=== PATIENT | male | born 1940 | race Native Hawaiian/Other Pacific Islander ===

== ENCOUNTER 2017-05-02 19:15 | Emergency (ER) | payer OTHER ==
[~2017-05-02 19:15] MED LIST: FLUD0.1T PO; KLOR-CON M2020 MEQ PO; LANS30CA PO
== END 2017-05-02 19:47 | disposition home or self-care (01) ==
LOC: ED 19:15
DX: M79.605 Pain in left leg (principal); R20.0 Anesthesia of skin
CPT/HCPCS: 99281

== ENCOUNTER 2019-04-20 14:16 | Outpatient (CLI) | payer OTHER | END 2019-04-20 14:29 | disposition short-term general hospital (02) | LOC: AMB 14:16 | DX: M79.604 Pain in right leg (principal); W18.39XA Other fall on same level, initial encounter; Y92.89 Other specified places as the place of occurrence of the external cause | CPT/HCPCS: A0425; A0427 ==

== ENCOUNTER 2019-04-20 14:39 | Emergency (ER) | payer OTHER ==
[~2019-04-20] VITALS: Ht 180.3 cm; Wt 90.7 kg
[2019-04-20 19:00] VITALS: BP 151/82; TEMP 98.1
== END 2019-04-20 19:00 | disposition short-term general hospital (02) ==
LOC: ED 14:39
DX: S72.391A Other fracture of shaft of right femur, initial encounter for closed fracture (principal); W18.39XA Other fall on same level, initial encounter; Y92.89 Other specified places as the place of occurrence of the external cause
CPT/HCPCS: 96374; 96375; 96376; 99284; J2175; J2550